=== PATIENT | female | born 1970 | race Caucasian/White ===

== ENCOUNTER 2019-08-29 10:44 | Outpatient (CLI) | payer BC ==
--- NOTE | 2019-08-29 12:13 | RAD ---
CERVICAL SPINE SERIES TWO VIEWS: HISTORY: Neck pain. History of bone metastasis. FINDINGS: The vertebral bodies are normal in height. There are some degenerative osteophytes at C5-C6 with mild disk narrowing and small osteophytes at C6-C7 without any significant disk narrowing. Degenerative f acet changes are present. No lytic or blastic bony lesions seen. IMPRESSION: Mild arthritic changes of the lower cervical spine. POS: [facility]
== END 2019-08-29 10:45 | disposition home or self-care (01) ==
LOC: SCSRAD 10:44
PROVIDERS: ATTEND Chiropractor
DX: M54.13 Radiculopathy, cervicothoracic region (principal); M46.92 Unspecified inflammatory spondylopathy, cervical region
CPT/HCPCS: 72040

== ENCOUNTER 2019-09-10 12:32 | Outpatient (CLI) | payer BC ==
--- NOTE | 2019-09-10 14:26 | CT ---
CT CHEST AND ABDOMEN AND PELVIS WITH IV CONTRAST: INDICATIONS: Breast cancer. COMPARISON: CT chest, abdomen and pelvis from [facility], dated 02/12/2019. TECHNIQUE: Oral contrast was given. Multiplanar reconstruction. FINDINGS: CHEST: The lung lowry are clear. There is no evidence of pulmonary mass or nodule. No effusion or in filtrate. Mediastinum unremarkable. There is a 1.4 cm sclerotic lesion in the T5 vertebral body which projects to the right of midline. This lesion is stable from the prior story and is indeterminate. N o other osseous lesion seen. There is a mildly prominent right axillary lymph node which has fatty hilum suggesting a benign lymph node however it measures up to 1.8 cm. This is a stable lymph node. There are numerous small nonspec [facility] left axillary lymph nodes measuring up to 1 cm, all of which appear stable. The thyroid is unrem arkable. ABDOMEN AND PELVIS: The liver shows decreased attenuation suggesting fatty infiltration. The liver, s pleen and pancreas are otherwise unremarkable. The stomach and duodenum are unremarkable. The adrena l glands are normal. The kidneys are unremarkable. Small bowel loops appear normal. Colon unremarkabl e. Aorta and retroperitoneum unremarkable. No mass or adenopathy. No free fluid. Images through the pelvis show a mildly distended bladder, suggestion of mild bladder wall thickening . Nonspecific sclerosis is seen along both SI joints, most prominent along the iliac side of both SI joints. This is symmetric but could represent nonspecific sacroiliitis. There are no comparison stud ies. The prior CTs only included chest/abdomen. The osseous structures of the abdomen and pelvis are otherwise unremarkable. IMPRESSION: 1. Nonspecific axillary lymph nodes are stable. 2. No evidence of metastatic disease to the lungs. 3. A nonspecific sclerotic lesion involving the T5 vertebral body is unchanged. 4. No acute process. No interval change in the appearance of the abdomen when compared to the outside examination of 02/12/2019. POS: [facility]
== END 2019-09-10 12:33 | disposition home or self-care (01) ==
LOC: ULT 12:32
PROVIDERS: ATTEND Internal Medicine Hematology & Oncology
DX: C50.111 Malignant neoplasm of central portion of right female breast (principal); C79.51 Secondary malignant neoplasm of bone; M89.9 Disorder of bone, unspecified
CPT/HCPCS: 71260; 74177; 93306